=== PATIENT | female | born 1935 | race Native Hawaiian/Other Pacific Islander ===

== ENCOUNTER 2016-01-24 09:19 | Inpatient (IN) | payer OTHER ==
[~2016-01-24 09:19] MED LIST: ACET-655 PO; AMLO5TAB PO; BUPR150T PO; CHLO10CA63 PO; CHOLESTYRAMINE RESIN XX; CLARITIN10 MG PO; DICL1GEL2 TOP; DICY20TA34 PO; GABA100C2 PO; HYDR25CA25 PO; LEXAPRO10 MG PO; LIPITOR20 MG PO; NYSTCRE EX; OMEPRAZOLE20 M1 PO; PRILOSEC20 MG PO; QUESTRAN4 G1 PO; [UNRECOGNIZED DRUG - CODE] PO
== END 2016-02-24 08:00 | disposition still patient (30) ==
LOC: PAVB 09:19
PROVIDERS: ADMIT Internal Medicine
DX: Z51.89 Encounter for other specified aftercare (principal)

== ENCOUNTER 2016-02-24 09:00 | Inpatient (IN) | payer OTHER | END 2016-03-26 09:35 | disposition still patient (30) | LOC: PAVB 09:00 | PROVIDERS: ADMIT Internal Medicine | DX: Z51.89 Encounter for other specified aftercare (principal) ==

== ENCOUNTER 2016-03-26 10:32 | Inpatient (IN) | payer OTHER | END 2016-04-23 09:38 | disposition still patient (30) | LOC: PAVB 10:32 | PROVIDERS: ADMIT Internal Medicine | DX: Z51.89 Encounter for other specified aftercare (principal) ==

== ENCOUNTER 2016-03-28 08:28 | Outpatient (CLI) | payer OTHER ==
[2016-03-28 08:45] LABS: PLATELET COUNT 288 K/uL (152-353)
[2016-03-28 09:02] LABS: POTASSIUM 5.4 mmol/L (3.6-5.2)
== END 2016-03-28 09:28 | disposition home or self-care (01) ==
LOC: LAB 08:28
PROVIDERS: Internal Medicine
DX: E11.9 Type 2 diabetes mellitus without complications (principal); I10 Essential (primary) hypertension; E78.4 Other hyperlipidemia
CPT/HCPCS: 36415; 80053; 80061; 83036; 85027

== ENCOUNTER 2016-04-07 11:25 | Outpatient (CLI) | payer OTHER | END 2016-04-07 23:03 | disposition home or self-care (01) | LOC: RAD 11:25 | DX: R05 Cough (principal); R09.3 Abnormal sputum ==

== ENCOUNTER 2016-04-23 10:20 | Inpatient (IN) | payer OTHER | END 2016-05-24 08:05 | disposition still patient (30) | LOC: PAVB 10:20 | PROVIDERS: ADMIT Internal Medicine | DX: Z51.89 Encounter for other specified aftercare (principal) ==

== ENCOUNTER 2016-05-24 09:18 | Inpatient (IN) | payer OTHER | END 2016-06-23 09:08 | disposition still patient (30) | LOC: PAVB 09:18 | PROVIDERS: ADMIT Internal Medicine | DX: Z51.89 Encounter for other specified aftercare (principal) ==

== ENCOUNTER 2016-06-10 17:15 | Outpatient (CLI) | payer OTHER | END 2016-06-10 19:18 | disposition home or self-care (01) | LOC: LAB 17:15 | DX: Z16.24 Resistance to multiple antibiotics (principal) | CPT/HCPCS: 87081 ==

== ENCOUNTER 2016-06-23 09:43 | Inpatient (IN) | payer OTHER | END 2016-07-24 09:31 | disposition still patient (30) | LOC: PAVB 09:43 | PROVIDERS: ADMIT Internal Medicine | DX: Z51.89 Encounter for other specified aftercare (principal) ==

== ENCOUNTER 2016-06-25 12:29 | Outpatient (CLI) | payer OTHER | END 2016-06-25 19:15 | disposition home or self-care (01) | LOC: LAB 12:29 | DX: E11.9 Type 2 diabetes mellitus without complications (principal) | CPT/HCPCS: 83036 ==

== ENCOUNTER 2016-07-24 09:45 | Inpatient (IN) | payer OTHER | END 2016-08-23 15:20 | disposition still patient (30) | LOC: PAVB 09:45 | PROVIDERS: ADMIT Internal Medicine | DX: Z51.89 Encounter for other specified aftercare (principal) ==

== ENCOUNTER 2016-08-01 14:29 | Outpatient (CLI) | payer OTHER | END 2016-08-01 19:29 | disposition home or self-care (01) | LOC: CT 14:29 | DX: R51 Headache (principal) ==

== ENCOUNTER 2016-08-23 15:31 | Inpatient (IN) | payer OTHER | END 2016-09-23 09:32 | disposition still patient (30) | LOC: PAVB 15:31 | PROVIDERS: ADMIT Internal Medicine | DX: Z51.89 Encounter for other specified aftercare (principal) ==

== ENCOUNTER 2016-09-11 07:29 | Outpatient (CLI) | payer OTHER | END 2016-09-11 19:13 | disposition home or self-care (01) | LOC: CT 07:29 | DX: R10.84 Generalized abdominal pain (principal) | CPT/HCPCS: 36415; 82565; 84520 ==

== ENCOUNTER 2016-09-23 09:55 | Inpatient (IN) | payer OTHER | END 2016-10-24 08:40 | disposition still patient (30) | LOC: PAVB 09:55 | PROVIDERS: ADMIT Internal Medicine | DX: Z51.89 Encounter for other specified aftercare (principal) ==

== ENCOUNTER 2016-10-24 09:00 | Inpatient (IN) | payer OTHER | END 2016-11-23 10:28 | disposition still patient (30) | LOC: PAVB 09:00 | PROVIDERS: ADMIT Internal Medicine | DX: Z51.89 Encounter for other specified aftercare (principal) ==

== ENCOUNTER 2016-11-23 10:31 | Inpatient (IN) | payer OTHER | END 2016-12-24 12:55 | disposition still patient (30) | LOC: PAVB 10:31 | PROVIDERS: ADMIT Internal Medicine ==

== ENCOUNTER 2016-11-27 07:44 | Day surgery (SDC) | payer OTHER | END 2016-11-27 09:47 | disposition home or self-care (01) | LOC: OR 07:44 | PROC: 0DB68ZZ Excision of Stomach, Via Natural or Artificial Opening Endoscopic (ICD-10-PCS; principal; 2016-11-27) | PROC: 0DB38ZZ Excision of Lower Esophagus, Via Natural or Artificial Opening Endoscopic (ICD-10-PCS; 2016-11-27) | DX: K21.9 Gastro-esophageal reflux disease without esophagitis (principal); R10.13 Epigastric pain; L53.8 Other specified erythematous conditions; R94.8 Abnormal results of function studies of other organs and systems; K29.60 Other gastritis without bleeding; K44.9 Diaphragmatic hernia without obstruction or gangrene | CPT/HCPCS: 88321; J2001; J2704; J3010 ==

== ENCOUNTER 2016-12-24 13:31 | Inpatient (IN) | payer OTHER | END 2017-01-23 09:17 | disposition still patient (30) | LOC: PAVB 13:31 | PROVIDERS: ADMIT Internal Medicine ==

== ENCOUNTER 2016-12-29 11:25 | Outpatient (CLI) | payer OTHER | END 2016-12-29 12:25 | disposition home or self-care (01) | LOC: LAB 11:25 | DX: E11.9 Type 2 diabetes mellitus without complications (principal) | CPT/HCPCS: 36415; 83036 ==

== ENCOUNTER 2017-01-23 09:29 | Inpatient (IN) | payer OTHER | END 2017-02-23 09:28 | disposition still patient (30) | LOC: PAVB 09:29 | PROVIDERS: ADMIT Internal Medicine ==

== ENCOUNTER 2017-02-23 09:52 | Inpatient (IN) | payer OTHER | END 2017-03-26 09:47 | disposition still patient (30) | LOC: PAVB 09:52 | PROVIDERS: ADMIT Internal Medicine ==

== ENCOUNTER 2017-03-26 10:27 | Inpatient (IN) | payer OTHER | END 2017-04-23 09:17 | disposition still patient (30) | LOC: PAVB 10:27 | PROVIDERS: ADMIT Internal Medicine ==

== ENCOUNTER 2017-03-30 06:19 | Outpatient (CLI) | payer OTHER ==
[2017-03-30 07:09] LABS: PLATELET COUNT 230 K/uL (152-353)
[2017-03-30 09:00] LABS: POTASSIUM 4.7 mmol/L (3.6-5.2)
== END 2017-03-30 20:21 | disposition home or self-care (01) ==
LOC: LAB 06:19
PROVIDERS: Internal Medicine
DX: I10 Essential (primary) hypertension (principal); E11.9 Type 2 diabetes mellitus without complications
CPT/HCPCS: 36415; 80053; 80061; 83036; 85027

== ENCOUNTER 2017-04-23 09:44 | Inpatient (IN) | payer OTHER | END 2017-05-24 08:00 | disposition still patient (30) | LOC: PAVB 09:44 | PROVIDERS: ADMIT Internal Medicine ==

== ENCOUNTER 2017-05-24 09:00 | Inpatient (IN) | payer OTHER | END 2017-06-23 09:03 | disposition still patient (30) | LOC: PAVB 09:00 | PROVIDERS: ADMIT Internal Medicine ==

== ENCOUNTER 2017-06-23 09:22 | Inpatient (IN) | payer OTHER | END 2017-07-24 08:51 | disposition still patient (30) | LOC: PAVB 09:22 | PROVIDERS: ADMIT Internal Medicine ==

== ENCOUNTER 2017-06-24 09:52 | Outpatient (CLI) | payer OTHER | END 2017-06-24 21:39 | disposition home or self-care (01) | LOC: LAB 09:52 | DX: E11.9 Type 2 diabetes mellitus without complications (principal) | CPT/HCPCS: 83036 ==

== ENCOUNTER 2017-07-24 09:07 | Inpatient (IN) | payer OTHER | END 2017-08-23 14:18 | disposition still patient (30) | LOC: PAVB 09:07 | PROVIDERS: ADMIT Internal Medicine ==

== ENCOUNTER 2017-08-23 14:43 | Inpatient (IN) | payer OTHER | END 2017-09-23 08:00 | disposition still patient (30) | LOC: PAVB 14:43 | PROVIDERS: ADMIT Internal Medicine ==

== ENCOUNTER 2017-09-23 09:00 | Inpatient (IN) | payer OTHER | END 2017-10-24 10:16 | disposition still patient (30) | LOC: PAVB 09:00 | PROVIDERS: ADMIT Internal Medicine ==

== ENCOUNTER 2017-09-28 03:37 | Outpatient (CLI) | payer OTHER ==
[2017-09-28 04:16] LABS: PLATELET COUNT 231 K/uL (152-353)
[2017-09-28 04:44] LABS: POTASSIUM 4.1 mmol/L (3.6-5.2)
== END 2017-09-28 19:32 | disposition home or self-care (01) ==
LOC: LAB 03:37
PROVIDERS: Internal Medicine
DX: E11.9 Type 2 diabetes mellitus without complications (principal); I10 Essential (primary) hypertension
CPT/HCPCS: 36415; 80053; 83036; 85027

== ENCOUNTER 2017-10-24 10:50 | Inpatient (IN) | payer OTHER | END 2017-11-23 09:17 | disposition still patient (30) | LOC: PAVB 10:50 | PROVIDERS: ADMIT Internal Medicine ==

== ENCOUNTER 2017-11-23 09:46 | Inpatient (IN) | payer OTHER | END 2017-12-24 08:45 | disposition still patient (30) | LOC: PAVB 09:46 | PROVIDERS: ADMIT Internal Medicine ==

== ENCOUNTER 2017-12-24 07:15 | Outpatient (CLI) | payer OTHER | END 2017-12-24 21:49 | disposition home or self-care (01) | LOC: LAB 07:15 | DX: E11.9 Type 2 diabetes mellitus without complications (principal) | CPT/HCPCS: 36415; 83036 ==

== ENCOUNTER 2017-12-24 09:32 | Inpatient (IN) | payer OTHER | END 2018-01-23 08:30 | disposition still patient (30) | LOC: PAVB 09:32 | PROVIDERS: ADMIT Internal Medicine ==

== ENCOUNTER 2018-01-05 09:50 | Outpatient (CLI) | payer OTHER | END 2018-01-05 22:05 | disposition home or self-care (01) | LOC: RAD 09:50 | DX: Z78.0 Asymptomatic menopausal state (principal) ==

== ENCOUNTER 2018-01-23 09:01 | Inpatient (IN) | payer OTHER | END 2018-02-23 11:03 | disposition still patient (30) | LOC: PAVB 09:01 | PROVIDERS: ADMIT Internal Medicine ==

== ENCOUNTER 2018-02-23 11:14 | Inpatient (IN) | payer OTHER | END 2018-03-26 10:48 | disposition still patient (30) | LOC: PAVB 11:14 | PROVIDERS: ADMIT Internal Medicine ==

== ENCOUNTER 2018-03-26 11:01 | Inpatient (IN) | payer OTHER | END 2018-04-23 10:15 | disposition still patient (30) | LOC: PAVB 11:01 | PROVIDERS: ADMIT Internal Medicine ==

== ENCOUNTER 2018-03-29 06:07 | Outpatient (CLI) | payer OTHER ==
[2018-03-29 07:56] LABS: PLATELET COUNT 256 K/uL (152-353)
[2018-03-29 08:21] LABS: POTASSIUM 4.8 mmol/L (3.6-5.2)
== END 2018-03-29 20:43 | disposition home or self-care (01) ==
LOC: LAB 06:07
PROVIDERS: Internal Medicine
DX: E11.9 Type 2 diabetes mellitus without complications (principal); I10 Essential (primary) hypertension
CPT/HCPCS: 36415; 80053; 80061; 83036; 85027

== ENCOUNTER 2018-04-23 10:26 | Inpatient (IN) | payer OTHER | END 2018-05-24 10:36 | disposition still patient (30) | LOC: PAVB 10:26 | PROVIDERS: ADMIT Internal Medicine ==

== ENCOUNTER 2018-05-24 11:09 | Inpatient (IN) | payer OTHER | END 2018-06-23 11:10 | disposition still patient (30) | LOC: PAVB 11:09 | PROVIDERS: ADMIT Internal Medicine ==

== ENCOUNTER 2018-06-23 12:13 | Inpatient (IN) | payer OTHER | END 2018-07-24 08:33 | disposition still patient (30) | LOC: PAVB 12:13 | PROVIDERS: ADMIT Internal Medicine | DX: Z51.89 Encounter for other specified aftercare (principal) ==

== ENCOUNTER 2018-06-24 04:28 | Outpatient (CLI) | payer OTHER | END 2018-06-24 19:45 | LOC: LAB 04:28 | DX: E11.9 Type 2 diabetes mellitus without complications (principal) | CPT/HCPCS: 83036 ==

== ENCOUNTER 2018-07-24 09:07 | Inpatient (IN) | payer OTHER | END 2018-08-23 09:35 | disposition still patient (30) | LOC: PAVB 09:07 | PROVIDERS: ADMIT Internal Medicine ==

== ENCOUNTER 2018-08-23 10:24 | Inpatient (IN) | payer OTHER | END 2018-09-23 10:33 | disposition still patient (30) | LOC: PAVB 10:24 | PROVIDERS: ADMIT Internal Medicine ==

== ENCOUNTER 2018-09-23 10:56 | Inpatient (IN) | payer OTHER | END 2018-10-24 16:24 | disposition still patient (30) | LOC: PAVB 10:56 | PROVIDERS: ADMIT Internal Medicine ==

== ENCOUNTER 2018-09-30 06:59 | Outpatient (CLI) | payer OTHER ==
[2018-09-30 07:57] LABS: PLATELET COUNT 250 K/uL (152-353)
[2018-09-30 08:12] LABS: POTASSIUM 4.6 mmol/L (3.6-5.2); SODIUM 143 mmol/L (136-145)
== END 2018-09-30 23:47 | disposition home or self-care (01) ==
LOC: LAB 06:59
PROVIDERS: Internal Medicine
DX: I10 Essential (primary) hypertension (principal); E11.9 Type 2 diabetes mellitus without complications
CPT/HCPCS: 80053; 83036; 85027

== ENCOUNTER 2018-10-24 16:54 | Inpatient (IN) | payer OTHER | END 2018-11-23 09:19 | disposition still patient (30) | LOC: PAVB 16:54 | PROVIDERS: ADMIT Internal Medicine ==

== ENCOUNTER 2018-11-23 09:46 | Inpatient (IN) | payer OTHER | END 2018-12-24 11:07 | disposition still patient (30) | LOC: PAVB 09:46 | PROVIDERS: ADMIT Internal Medicine ==

== ENCOUNTER 2018-12-24 11:23 | Inpatient (IN) | payer OTHER | END 2019-01-23 08:00 | disposition still patient (30) | LOC: PAVB 11:23 | PROVIDERS: ADMIT Internal Medicine ==

== ENCOUNTER 2018-12-27 11:17 | Outpatient (CLI) | payer OTHER | END 2018-12-27 19:17 | disposition home or self-care (01) | LOC: LAB 11:17 | DX: E11.9 Type 2 diabetes mellitus without complications (principal); E83.51 Hypocalcemia | CPT/HCPCS: 82306; 82310; 83036 ==

== ENCOUNTER 2019-01-23 10:10 | Inpatient (IN) | payer OTHER | END 2019-02-23 08:33 | disposition still patient (30) | LOC: PAVB 10:10 | PROVIDERS: ADMIT Internal Medicine ==

== ENCOUNTER 2019-02-23 08:40 | Inpatient (IN) | payer OTHER | END 2019-03-26 09:54 | disposition still patient (30) | LOC: PAVB 08:40 | PROVIDERS: ADMIT Internal Medicine ==

== ENCOUNTER 2019-03-26 10:24 | Inpatient (IN) | payer OTHER | END 2019-04-24 13:13 | disposition still patient (30) | LOC: PAVB 10:24 | PROVIDERS: ADMIT Internal Medicine ==

== ENCOUNTER 2019-03-30 06:21 | Outpatient (CLI) | payer OTHER ==
[2019-03-30 07:57] LABS: PLATELET COUNT 215 K/uL (152-353); POTASSIUM 4.3 mmol/L (3.6-5.2)
== END 2019-03-30 22:25 | disposition home or self-care (01) ==
LOC: LAB 06:21
PROVIDERS: Internal Medicine
DX: E11.9 Type 2 diabetes mellitus without complications (principal); E78.49 Other hyperlipidemia; I10 Essential (primary) hypertension
CPT/HCPCS: 80053; 80061; 83036; 85027

== ENCOUNTER 2019-04-24 13:48 | Inpatient (IN) | payer OTHER | END 2019-05-25 09:38 | disposition still patient (30) | LOC: PAVB 13:48 | PROVIDERS: ADMIT Internal Medicine ==

== ENCOUNTER 2019-05-25 10:03 | Inpatient (IN) | payer OTHER | END 2019-06-24 09:00 | disposition still patient (30) | LOC: PAVB 10:03 | PROVIDERS: ADMIT Internal Medicine | CPT/HCPCS: 87635; U0002 ==

== ENCOUNTER 2019-06-24 09:40 | Inpatient (IN) | payer OTHER | END 2019-07-25 09:09 | disposition still patient (30) | LOC: PAVB 09:40 | PROVIDERS: ADMIT Internal Medicine | CPT/HCPCS: 87635; U0002 ==

== ENCOUNTER 2019-06-30 06:14 | Outpatient (CLI) | payer OTHER | END 2019-06-30 20:08 | disposition home or self-care (01) | LOC: LAB 06:14 | DX: E11.9 Type 2 diabetes mellitus without complications (principal) | CPT/HCPCS: 83036 ==

== ENCOUNTER 2019-07-25 09:21 | Inpatient (IN) | payer OTHER | END 2019-08-24 10:19 | disposition still patient (30) | LOC: PAVB 09:21 | PROVIDERS: ADMIT Internal Medicine | CPT/HCPCS: 87635; U0002 ==

== ENCOUNTER 2019-08-24 10:51 | Inpatient (IN) | payer OTHER | END 2019-09-24 09:11 | disposition still patient (30) | LOC: PAVB 10:51 | PROVIDERS: ADMIT Internal Medicine | CPT/HCPCS: 87635; U0002 ==

== ENCOUNTER 2019-09-24 09:27 | Inpatient (IN) | payer OTHER | END 2019-10-25 11:59 | disposition still patient (30) | LOC: PAVB 09:27 | PROVIDERS: ADMIT Internal Medicine | CPT/HCPCS: 87635; U0002; U0003 ==

== ENCOUNTER 2019-09-28 06:59 | Outpatient (CLI) | payer OTHER ==
[2019-09-28 07:49] LABS: PLATELET COUNT 222 K/uL (152-353)
[2019-09-28 08:20] LABS: POTASSIUM 4.6 mmol/L (3.6-5.2)
== END 2019-09-28 19:42 | disposition home or self-care (01) ==
LOC: LAB 06:59
PROVIDERS: Internal Medicine
DX: E11.9 Type 2 diabetes mellitus without complications (principal); I10 Essential (primary) hypertension; E78.49 Other hyperlipidemia
CPT/HCPCS: 80053; 83036; 85027

== ENCOUNTER 2019-10-25 12:47 | Inpatient (IN) | payer OTHER | END 2019-11-24 11:03 | disposition still patient (30) | LOC: PAVB 12:47 | PROVIDERS: ADMIT Internal Medicine ==

== ENCOUNTER 2019-11-24 11:20 | Inpatient (IN) | payer OTHER | END 2019-12-25 08:00 | disposition still patient (30) | LOC: PAVB 11:20 | PROVIDERS: ADMIT Internal Medicine ==

== ENCOUNTER 2019-12-25 09:00 | Inpatient (IN) | payer OTHER | END 2020-01-24 09:57 | disposition still patient (30) | LOC: PAVB 09:00 | PROVIDERS: ADMIT Internal Medicine; ATTEND Internal Medicine ==

== ENCOUNTER 2019-12-27 08:48 | Outpatient (CLI) | payer OTHER | END 2019-12-27 23:29 | disposition home or self-care (01) | LOC: LAB 08:48 | DX: E11.9 Type 2 diabetes mellitus without complications (principal) | CPT/HCPCS: 83036 ==

== ENCOUNTER 2020-01-24 10:55 | Inpatient (IN) | payer OTHER | END 2020-02-24 09:02 | disposition still patient (30) | LOC: PAVB 10:55 | PROVIDERS: ADMIT Internal Medicine; ATTEND Internal Medicine ==

== ENCOUNTER 2020-01-27 10:38 | Outpatient (CLI) | payer OTHER | END 2020-01-27 18:58 | disposition home or self-care (01) | LOC: RAD 10:38 | PROVIDERS: ATTEND Internal Medicine | DX: Z13.820 Encounter for screening for osteoporosis (principal); M85.88 Other specified disorders of bone density and structure, other site ==

== ENCOUNTER 2020-02-24 09:11 | Inpatient (IN) | payer OTHER | END 2020-03-26 14:55 | disposition still patient (30) | LOC: PAVB 09:11 | PROVIDERS: ADMIT Internal Medicine; ATTEND Internal Medicine ==

== ENCOUNTER 2020-03-26 08:30 | Outpatient (CLI) | payer OTHER ==
[2020-03-26 08:47] LABS: PLATELET COUNT 216 K/uL (152-353)
[2020-03-26 08:50] LABS: POTASSIUM 4.2 mmol/L (3.6-5.2)
== END 2020-03-26 19:15 | disposition home or self-care (01) ==
LOC: LAB 08:30
PROVIDERS: ATTEND Internal Medicine
DX: I10 Essential (primary) hypertension (principal); E11.9 Type 2 diabetes mellitus without complications; E78.49 Other hyperlipidemia
CPT/HCPCS: 80053; 80061; 83036; 85027

== ENCOUNTER 2020-03-26 15:03 | Inpatient (IN) | payer OTHER | END 2020-04-23 09:54 | disposition still patient (30) | LOC: PAVB 15:03 | PROVIDERS: ADMIT Internal Medicine; ATTEND Internal Medicine ==

== ENCOUNTER 2020-04-23 10:06 | Inpatient (IN) | payer OTHER | END 2020-05-24 10:00 | disposition still patient (30) | LOC: PAVB 10:06 | PROVIDERS: ADMIT Internal Medicine; ATTEND Internal Medicine ==

== ENCOUNTER 2020-05-24 10:27 | Inpatient (IN) | payer OTHER | END 2020-06-23 10:50 | disposition still patient (30) | LOC: PAVB 10:27 | PROVIDERS: ADMIT Internal Medicine; ATTEND Internal Medicine ==

== ENCOUNTER 2020-06-23 11:02 | Inpatient (IN) | payer OTHER | END 2020-07-24 14:38 | disposition still patient (30) | LOC: PAVB 11:02 | PROVIDERS: ADMIT Internal Medicine; ATTEND Internal Medicine ==

== ENCOUNTER 2020-06-25 07:12 | Outpatient (CLI) | payer OTHER | END 2020-06-25 19:11 | disposition home or self-care (01) | LOC: LAB 07:12 | PROVIDERS: ATTEND Internal Medicine | DX: E11.9 Type 2 diabetes mellitus without complications (principal) | CPT/HCPCS: 83036 ==

== ENCOUNTER 2020-07-24 14:47 | Inpatient (IN) | payer OTHER | END 2020-08-23 08:00 | disposition still patient (30) | LOC: PAVB 14:47 | PROVIDERS: ADMIT Internal Medicine; ATTEND Internal Medicine ==

== ENCOUNTER 2020-07-30 11:49 | Outpatient (CLI) | payer OTHER | END 2020-07-30 21:48 | disposition home or self-care (01) | LOC: LAB 11:49 | PROVIDERS: ATTEND Internal Medicine | DX: M81.0 Age-related osteoporosis without current pathological fracture (principal) | CPT/HCPCS: 82310 ==

== ENCOUNTER 2020-08-23 09:00 | Inpatient (IN) | payer OTHER | END 2020-09-23 08:00 | disposition still patient (30) | LOC: PAVB 09:00 | PROVIDERS: ADMIT Internal Medicine; ATTEND Internal Medicine ==

== ENCOUNTER 2020-09-23 09:00 | Inpatient (IN) | payer OTHER | END 2020-10-24 10:17 | disposition still patient (30) | LOC: PAVB 09:00 | PROVIDERS: ADMIT Internal Medicine; ATTEND Internal Medicine | CPT/HCPCS: 80053; 82728 ==

== ENCOUNTER 2020-09-24 09:00 | Outpatient (CLI) | payer OTHER ==
[2020-09-24 10:43] LABS: PLATELET COUNT 212 K/uL (152-353)
[2020-09-24 10:58] LABS: POTASSIUM 4.4 mmol/L (3.6-5.2)
== END 2020-09-24 22:37 | disposition home or self-care (01) ==
LOC: LAB 09:00
PROVIDERS: ATTEND Internal Medicine
DX: I10 Essential (primary) hypertension (principal); E11.9 Type 2 diabetes mellitus without complications; E78.49 Other hyperlipidemia
CPT/HCPCS: 80053; 83036; 85027

== ENCOUNTER 2020-09-26 11:14 | Outpatient (CLI) | payer OTHER | END 2020-09-26 17:46 | disposition home or self-care (01) | LOC: LAB 11:14 | PROVIDERS: ATTEND Internal Medicine | DX: D64.89 Other specified anemias (principal) | CPT/HCPCS: 80053 ==

== ENCOUNTER 2020-10-05 14:15 | Outpatient (CLI) | payer OTHER | END 2020-10-05 23:14 | disposition home or self-care (01) | LOC: LAB 14:15 | PROVIDERS: ATTEND Internal Medicine | DX: U07.1 COVID-19 (principal) | CPT/HCPCS: 85379 ==

== ENCOUNTER 2020-10-06 10:26 | Outpatient (CLI) | payer OTHER | END 2020-10-06 18:58 | disposition home or self-care (01) | LOC: RAD 10:26 | PROVIDERS: ATTEND Internal Medicine | DX: U07.1 COVID-19 (principal) ==

== ENCOUNTER 2020-10-23 12:48 | Outpatient (CLI) | payer OTHER ==
[2020-10-23 13:25] LABS: PLATELET COUNT 241 K/uL (152-353)
[2020-10-23 13:52] LABS: POTASSIUM 5.6 mmol/L (3.6-5.2)
== END 2020-10-23 20:53 | disposition home or self-care (01) ==
LOC: INF 12:48 → LAB 12:48 → INF 20:53
PROVIDERS: ATTEND Internal Medicine
DX: E86.0 Dehydration (principal)
CPT/HCPCS: 80053; 82728; 83540; 85027; 96360; 96361

== ENCOUNTER 2020-10-24 10:14 | Outpatient (CLI) | payer OTHER ==
[~2020-10-24] VITALS: Ht 154.9 cm; Wt 56.7 kg
== END 2020-10-24 23:20 | disposition home or self-care (01) ==
LOC: INF 10:14
PROVIDERS: ATTEND Internal Medicine
DX: E86.0 Dehydration (principal)
CPT/HCPCS: 96360; 96361

== ENCOUNTER 2020-10-24 12:58 | Inpatient (IN) | payer OTHER | END 2020-11-23 08:41 | disposition still patient (30) | LOC: PAVB 12:58 | PROVIDERS: ADMIT Internal Medicine; ATTEND Internal Medicine ==

== ENCOUNTER 2020-10-25 11:44 | Outpatient (CLI) | payer OTHER ==
[~2020-10-25] VITALS: Ht 154.9 cm; Wt 65.8 kg
== END 2020-10-25 22:16 | disposition home or self-care (01) ==
LOC: INF 11:44
PROVIDERS: ATTEND Internal Medicine
DX: E86.0 Dehydration (principal)
CPT/HCPCS: 96360; 96361

== ENCOUNTER 2020-10-26 07:05 | Outpatient (CLI) | payer OTHER ==
[~2020-10-26] VITALS: Ht 162.6 cm; Wt 54.4 kg
[2020-10-26 08:23] LABS: PLATELET COUNT 171 K/uL (152-353)
[2020-10-26 08:49] LABS: POTASSIUM 4.3 mmol/L (3.6-5.2)
== END 2020-10-26 18:55 | disposition home or self-care (01) ==
LOC: INF 07:05 → LAB 07:05 → INF 18:55
PROVIDERS: ATTEND Internal Medicine
DX: E86.0 Dehydration (principal)
CPT/HCPCS: 80053; 85027

== ENCOUNTER → 2020-10-27 | Outpatient (CLI) | payer OTHER ==
[~2020-10-27] VITALS: Ht 154.9 cm; Wt 54.4 kg
== END ==
LOC: INF 09:30
PROVIDERS: ATTEND Internal Medicine
DX: E86.0 Dehydration (principal)

== ENCOUNTER → 2020-10-28 | Outpatient (CLI) | payer OTHER ==
[~2020-10-28] VITALS: Ht 154.9 cm; Wt 54.4 kg
== END ==
LOC: INF 09:00
PROVIDERS: ATTEND Internal Medicine
DX: E86.0 Dehydration (principal)

== ENCOUNTER 2020-10-29 07:02 | Outpatient (CLI) | payer OTHER ==
[2020-10-29 08:02] LABS: PLATELET COUNT 143 K/uL (152-353)
[2020-10-29 08:12] LABS: POTASSIUM 3.4 mmol/L (3.6-5.2)
== END 2020-10-29 18:55 | disposition home or self-care (01) ==
LOC: LAB 07:02
PROVIDERS: ATTEND Internal Medicine
DX: E86.0 Dehydration (principal)
CPT/HCPCS: 80053; 85027

== ENCOUNTER 2020-12-18 13:24 | Outpatient (CLI) | payer OTHER | END 2020-12-18 20:07 | disposition home or self-care (01) | LOC: RAD 13:24 | PROVIDERS: ATTEND Internal Medicine | DX: R06.02 Shortness of breath (principal); M25.511 Pain in right shoulder ==

== ENCOUNTER 2020-12-24 07:14 | Outpatient (CLI) | payer OTHER | END 2020-12-24 19:16 | disposition home or self-care (01) | LOC: LAB 07:14 | PROVIDERS: ATTEND Internal Medicine | DX: E11.9 Type 2 diabetes mellitus without complications (principal) | CPT/HCPCS: 83036 ==

== ENCOUNTER 2021-01-23 07:01 | Outpatient (CLI) | payer OTHER | END 2021-01-23 20:08 | disposition home or self-care (01) | LOC: LAB 07:01 | PROVIDERS: ATTEND Internal Medicine | DX: E83.51 Hypocalcemia (principal) | CPT/HCPCS: 36415; 82310 ==

== ENCOUNTER 2021-01-23 10:19 | Inpatient (IN) | payer OTHER | END 2021-02-23 08:21 | disposition still patient (30) | LOC: PAVB 10:19 | PROVIDERS: ADMIT Internal Medicine; ATTEND Internal Medicine ==

== ENCOUNTER 2021-02-23 08:43 | Inpatient (IN) | payer OTHER | END 2021-03-26 09:29 | disposition still patient (30) | LOC: PAVB 08:43 | PROVIDERS: ADMIT Internal Medicine; ATTEND Internal Medicine ==

== ENCOUNTER 2021-03-26 13:49 | Inpatient (IN) | payer OTHER | END 2021-04-23 08:57 | disposition still patient (30) | LOC: PAVB 13:49 | PROVIDERS: ADMIT Internal Medicine; ATTEND Internal Medicine ==

== ENCOUNTER 2021-03-27 08:49 | Outpatient (CLI) | payer OTHER ==
[2021-03-27 10:18] LABS: POTASSIUM 4.9 mmol/L (3.6-5.2)
[2021-03-27 10:32] LABS: PLATELET COUNT 293 K/uL (152-353)
== END 2021-03-27 19:34 | disposition home or self-care (01) ==
LOC: LAB 08:49
PROVIDERS: ATTEND Internal Medicine
DX: E78.49 Other hyperlipidemia (principal); E11.9 Type 2 diabetes mellitus without complications
CPT/HCPCS: 80053; 80061; 83036; 85027

== ENCOUNTER 2021-03-28 14:47 | Outpatient (CLI) | payer OTHER | END 2021-03-28 21:14 | disposition home or self-care (01) | LOC: LAB 14:47 | PROVIDERS: ATTEND Internal Medicine | DX: D64.9 Anemia, unspecified (principal) | CPT/HCPCS: 82728; 83540; 83550 ==

== ENCOUNTER 2021-04-23 12:16 | Inpatient (IN) | payer OTHER | END 2021-05-24 08:41 | disposition still patient (30) | LOC: PAVB 12:16 | PROVIDERS: ADMIT Internal Medicine; ATTEND Internal Medicine ==

== ENCOUNTER 2021-05-24 08:58 | Inpatient (IN) | payer OTHER | END 2021-06-23 09:54 | disposition still patient (30) | LOC: PAVB 08:58 | PROVIDERS: ADMIT Internal Medicine; ATTEND Internal Medicine ==

== ENCOUNTER 2021-06-23 12:28 | Inpatient (IN) | payer OTHER | END 2021-07-24 09:35 | disposition still patient (30) | LOC: PAVB 12:28 | PROVIDERS: ADMIT Internal Medicine; ATTEND Internal Medicine ==

== ENCOUNTER 2021-06-24 12:43 | Outpatient (CLI) | payer OTHER | END 2021-06-24 19:01 | disposition home or self-care (01) | LOC: LAB 12:43 | PROVIDERS: ATTEND Internal Medicine | DX: E11.9 Type 2 diabetes mellitus without complications (principal) | CPT/HCPCS: 83036 ==

== ENCOUNTER 2021-07-24 10:14 | Outpatient (CLI) | payer OTHER | END 2021-07-24 19:12 | disposition home or self-care (01) | LOC: LAB 10:14 | PROVIDERS: ATTEND Internal Medicine | DX: E55.9 Vitamin D deficiency, unspecified (principal) | CPT/HCPCS: 82310 ==

== ENCOUNTER 2021-07-24 13:12 | Inpatient (IN) | payer OTHER | END 2021-08-23 09:03 | disposition still patient (30) | LOC: PAVB 13:12 | PROVIDERS: ADMIT Internal Medicine; ATTEND Internal Medicine ==

== ENCOUNTER 2021-08-23 10:53 | Inpatient (IN) | payer OTHER | END 2021-09-23 09:14 | disposition still patient (30) | LOC: PAVB 10:53 | PROVIDERS: ADMIT Internal Medicine; ATTEND Internal Medicine ==

== ENCOUNTER 2021-09-23 11:22 | Inpatient (IN) | payer OTHER | END 2021-10-24 09:00 | disposition still patient (30) | LOC: PAVB 11:22 | PROVIDERS: ADMIT Internal Medicine; ATTEND Internal Medicine ==

== ENCOUNTER 2021-09-24 11:17 | Outpatient (CLI) | payer OTHER ==
[2021-09-24 11:44] LABS: POTASSIUM 4.7 mmol/L (3.6-5.2)
[2021-09-24 11:48] LABS: PLATELET COUNT 297 K/uL (152-353)
== END 2021-09-24 19:05 | disposition home or self-care (01) ==
LOC: LAB 11:17
PROVIDERS: ATTEND Internal Medicine
DX: E11.9 Type 2 diabetes mellitus without complications (principal); I10 Essential (primary) hypertension
CPT/HCPCS: 80053; 83036; 85027

== ENCOUNTER 2021-10-24 10:46 | Inpatient (IN) | payer OTHER | END 2021-11-23 10:23 | disposition still patient (30) | LOC: PAVB 10:46 | PROVIDERS: ADMIT Internal Medicine Endocrinology, Diabetes & Metabolism; ATTEND Internal Medicine Endocrinology, Diabetes & Metabolism ==

== ENCOUNTER 2021-11-23 12:18 | Inpatient (IN) | payer OTHER | END 2021-12-24 14:34 | disposition still patient (30) | LOC: PAVB 12:18 | PROVIDERS: ADMIT Internal Medicine Endocrinology, Diabetes & Metabolism; ATTEND Internal Medicine Endocrinology, Diabetes & Metabolism ==

== ENCOUNTER 2021-12-24 15:16 | Inpatient (IN) | payer OTHER | END 2022-01-23 14:58 | disposition still patient (30) | LOC: PAVB 15:16 | PROVIDERS: ADMIT Internal Medicine Endocrinology, Diabetes & Metabolism; ATTEND Internal Medicine Endocrinology, Diabetes & Metabolism ==

== ENCOUNTER → 2021-12-24 | Outpatient (CLI) | payer OTHER | LOC: LAB 09:14 | PROVIDERS: ATTEND Internal Medicine Endocrinology, Diabetes & Metabolism | DX: E11.9 Type 2 diabetes mellitus without complications (principal) | CPT/HCPCS: 83036 ==

== ENCOUNTER 2022-01-23 16:38 | Inpatient (IN) | payer OTHER | END 2022-02-23 10:33 | disposition still patient (30) | LOC: PAVB 16:38 | PROVIDERS: ADMIT Internal Medicine Endocrinology, Diabetes & Metabolism; ATTEND Internal Medicine Endocrinology, Diabetes & Metabolism ==

== ENCOUNTER → 2022-01-29 | Outpatient (CLI) | payer OTHER | LOC: LAB 15:26 | PROVIDERS: ATTEND Internal Medicine Endocrinology, Diabetes & Metabolism | DX: M81.0 Age-related osteoporosis without current pathological fracture (principal) | CPT/HCPCS: 82310 ==

== ENCOUNTER 2022-02-10 11:13 | Outpatient (CLI) | payer OTHER | END 2022-02-10 18:57 | disposition home or self-care (01) | LOC: RAD 11:13 | PROVIDERS: ATTEND Internal Medicine Endocrinology, Diabetes & Metabolism | DX: M85.88 Other specified disorders of bone density and structure, other site (principal) ==

== ENCOUNTER 2022-02-23 11:58 | Inpatient (IN) | payer OTHER | END 2022-03-26 08:42 | disposition still patient (30) | LOC: PAVB 11:58 | PROVIDERS: ADMIT Internal Medicine Endocrinology, Diabetes & Metabolism; ATTEND Internal Medicine Endocrinology, Diabetes & Metabolism ==

== ENCOUNTER 2022-03-26 10:29 | Inpatient (IN) | payer OTHER | END 2022-04-23 11:52 | disposition still patient (30) | LOC: PAVB 10:29 | PROVIDERS: ADMIT Internal Medicine Endocrinology, Diabetes & Metabolism; ATTEND Internal Medicine Endocrinology, Diabetes & Metabolism ==

== ENCOUNTER 2022-03-31 05:32 | Outpatient (CLI) | payer OTHER ==
[2022-03-31 06:32] LABS: PLATELET COUNT 340 K/uL (152-353)
[2022-03-31 07:25] LABS: POTASSIUM 5.2 mmol/L (3.6-5.2)
== END 2022-03-31 19:25 | disposition home or self-care (01) ==
LOC: LAB 05:32
PROVIDERS: ATTEND Internal Medicine Endocrinology, Diabetes & Metabolism
DX: E78.49 Other hyperlipidemia (principal); E11.9 Type 2 diabetes mellitus without complications
CPT/HCPCS: 36415; 80053; 80061; 83036; 85027

== ENCOUNTER 2022-04-01 08:23 | Outpatient (CLI) | payer OTHER ==
[~2022-04-01] VITALS: Ht 154.9 cm; Wt 54.4 kg
[2022-04-01] VITALS (7 sets, daily range): BP systolic 122–141; BP diastolic 34–65; TEMP 97.4–98.2
== END 2022-04-01 23:05 | disposition home or self-care (01) ==
LOC: INF 08:23
PROVIDERS: ATTEND Internal Medicine
PROC: 30233N1 Transfusion of Nonautologous Red Blood Cells into Peripheral Vein, Percutaneous Approach (ICD-10-PCS; principal; 2022-04-01)
DX: D64.9 Anemia, unspecified (principal)
CPT/HCPCS: 36415; 36430; 86850; 86900; 86901; 86922; P9016

== ENCOUNTER 2022-04-23 12:26 | Inpatient (IN) | payer OTHER | END 2022-05-24 11:23 | disposition still patient (30) | LOC: PAVB 12:26 | PROVIDERS: ADMIT Internal Medicine Endocrinology, Diabetes & Metabolism; ATTEND Internal Medicine Endocrinology, Diabetes & Metabolism ==

== ENCOUNTER 2022-05-21 13:51 | Outpatient (CLI) | payer OTHER | END 2022-05-21 19:28 | disposition home or self-care (01) | LOC: LAB 13:51 | PROVIDERS: ATTEND Internal Medicine Endocrinology, Diabetes & Metabolism | DX: R30.0 Dysuria (principal) | CPT/HCPCS: 81000; 87077; 87086; 87088; 87186 ==

== ENCOUNTER 2022-05-24 11:38 | Inpatient (IN) | payer OTHER | END 2022-06-23 10:42 | disposition still patient (30) | LOC: PAVB 11:38 | PROVIDERS: ADMIT Internal Medicine Endocrinology, Diabetes & Metabolism; ATTEND Internal Medicine Endocrinology, Diabetes & Metabolism ==

== ENCOUNTER 2022-06-23 09:55 | Outpatient (CLI) | payer OTHER ==
[2022-06-23 17:30] LABS: POTASSIUM 4.9 mmol/L (3.6-5.2)
[2022-06-23 17:41] LABS: PLATELET COUNT 300 K/uL (152-353)
== END 2022-06-23 19:44 | disposition home or self-care (01) ==
LOC: LAB 09:55
PROVIDERS: ATTEND Internal Medicine Endocrinology, Diabetes & Metabolism
DX: D64.89 Other specified anemias (principal); E11.9 Type 2 diabetes mellitus without complications
CPT/HCPCS: 80053; 83036; 85008; 85027

== ENCOUNTER 2022-06-23 11:34 | Inpatient (IN) | payer OTHER | END 2022-07-24 10:34 | disposition still patient (30) | LOC: PAVB 11:34 | PROVIDERS: ADMIT Internal Medicine Endocrinology, Diabetes & Metabolism; ATTEND Internal Medicine Endocrinology, Diabetes & Metabolism ==

== ENCOUNTER 2022-07-24 10:52 | Inpatient (IN) | payer OTHER | END 2022-08-23 17:32 | disposition still patient (30) | LOC: PAVB 10:52 | PROVIDERS: ADMIT Internal Medicine Endocrinology, Diabetes & Metabolism; ATTEND Internal Medicine Endocrinology, Diabetes & Metabolism ==

== ENCOUNTER 2022-07-25 07:49 | Outpatient (CLI) | payer OTHER | END 2022-07-25 18:54 | disposition home or self-care (01) | LOC: LAB 07:49 | PROVIDERS: ATTEND Internal Medicine Endocrinology, Diabetes & Metabolism | DX: M81.0 Age-related osteoporosis without current pathological fracture (principal) | CPT/HCPCS: 82310 ==

== ENCOUNTER 2022-08-06 11:42 | Outpatient (CLI) | payer OTHER ==
[2022-08-06 11:52] LABS: PLATELET COUNT 325 K/uL (152-353)
== END 2022-08-06 22:12 | disposition home or self-care (01) ==
LOC: LAB 11:42
PROVIDERS: ATTEND Internal Medicine
DX: R10.9 Unspecified abdominal pain (principal); R10.2 Pelvic and perineal pain
CPT/HCPCS: 85027

== ENCOUNTER 2022-08-25 14:06 | Outpatient (CLI) | payer OTHER | END 2022-08-25 19:29 | disposition home or self-care (01) | LOC: RAD 14:06 | PROVIDERS: ATTEND Internal Medicine | DX: M79.672 Pain in left foot (principal) ==

== ENCOUNTER 2022-09-24 07:57 | Outpatient (CLI) | payer OTHER ==
[2022-09-24 08:50] LABS: PLATELET COUNT 281 K/uL (152-353)
[2022-09-24 08:54] LABS: POTASSIUM 4.9 mmol/L (3.6-5.2)
== END 2022-09-24 19:03 | disposition home or self-care (01) ==
LOC: LAB 07:57
PROVIDERS: ATTEND Internal Medicine
DX: I10 Essential (primary) hypertension (principal); E11.9 Type 2 diabetes mellitus without complications
CPT/HCPCS: 36415; 80053; 83036; 85027

== ENCOUNTER 2022-10-01 07:53 | Outpatient (CLI) | payer OTHER ==
[2022-10-01 08:05] LABS: PLATELET COUNT 308 K/uL (152-353)
== END 2022-10-01 19:02 | disposition home or self-care (01) ==
LOC: LAB 07:53
PROVIDERS: ATTEND Internal Medicine
DX: D64.89 Other specified anemias (principal)
CPT/HCPCS: 82272; 85027

== ENCOUNTER 2022-10-02 07:55 | Outpatient (CLI) | payer OTHER ==
[~2022-10-02] VITALS: Ht 165.1 cm; Wt 68.0 kg
[2022-10-02] VITALS (7 sets, daily range): BP systolic 111–149; BP diastolic 37–57; TEMP 97.5–97.9
== END 2022-10-02 18:54 | disposition home or self-care (01) ==
LOC: INF 07:55
PROVIDERS: ATTEND Internal Medicine
DX: D64.89 Other specified anemias (principal)
CPT/HCPCS: 36415; 36430; 86850; 86900; 86901; 86922; P9016

== ENCOUNTER 2022-10-02 20:10 | Outpatient (CLI) | payer OTHER ==
[2022-10-02 20:38] LABS: PLATELET COUNT 332 K/uL (152-353)
== END 2022-10-02 20:31 | disposition home or self-care (01) ==
LOC: LAB 20:10
PROVIDERS: ATTEND Internal Medicine
DX: D64.89 Other specified anemias (principal)
CPT/HCPCS: 36415; 85027

== ENCOUNTER 2022-10-03 12:19 | Outpatient (CLI) | payer OTHER | END 2022-10-03 19:16 | disposition home or self-care (01) | LOC: LAB 12:19 | PROVIDERS: ATTEND Internal Medicine | DX: R10.9 Unspecified abdominal pain (principal) | CPT/HCPCS: 86677 ==

== ENCOUNTER 2022-10-13 07:06 | Outpatient (CLI) | payer OTHER ==
[2022-10-13 07:49] LABS: PLATELET COUNT 222 K/uL (152-353)
== END 2022-10-13 19:37 | disposition home or self-care (01) ==
LOC: LAB 07:06
PROVIDERS: ATTEND Internal Medicine
DX: D64.89 Other specified anemias (principal)
CPT/HCPCS: 85027